=== PATIENT | female | born 1980 | race Caucasian/White ===

== ENCOUNTER 2018-09-28 08:24 | Emergency (ER) | payer SELFPAY ==
--- NOTE | 2018-09-28 08:41 | ED.PDOC ---
History of Present Illness - General Chief Complaint: Drug or Alcohol Abuse Stated Complaint: took 20 hydrocodone/Xanax with SI Time Seen by Provider: 09/28/18 08:36 Source: patient Exam Limitations: no limitations - History of Present Illness Initial Comments: Patient comes in with intentional overdose. She states she took a mixture of 20 Hydrocodone and Xanax 2 hours ago with the intention of suicide. She takes the Xanax for anxiety and the hydrocodone was not hers. She denies any other diagnosis or past medical history other than anxiety. She is groggy but able to awaken easily and talk to us. She smokes cigarettes but does not drink or take other illicit drugs other than today. Timing/Duration: 1-3 hours Severity: severe Improving Factors: nothing Worsening Factors: nothing Associated Symptoms: denies symptoms Allergies/Adverse Reactions: Allergies NO KNOWN ALLERGY Allergy (Verified 09/01/15 19:45) Home Medications: Ambulatory Orders Alprazolam [Xanax] 1 mg PO TID PRN 09/28/18 Amphetamine-Dextroamphetamine [Adderall Xr 30 mg] 1 cap PO DAILY 09/28/18 Review of Systems - Review of Systems Constitutional: States: no symptoms reported, chills. Denies: fever EENTM: States: no symptoms reported Respiratory: States: no symptoms reported. Denies: cough, short of breath Cardiology: States: no symptoms reported Gastrointestinal/Abdominal: States: no symptoms reported Genitourinary: States: no symptoms reported Musculoskeletal: States: no symptoms reported Past Medical History (General) - Patient Medical History Hx Seizures: No Hx Stroke: No Hx Dementia: No Hx Asthma: No Hx of COPD: No Hx Cardiac Disorders: No Hx Congestive Heart Failure: No Hx Pacemaker: No Hx Hypertension: No Hx Thyroid Disease: No Hx Diabetes: No Hx Gastroesophageal Reflux: No Hx Renal Disease: No Hx Cancer: No Hx of HIV: No Hx Hepatitis C: No Hx MRSA: No - Vaccination History Hx Tetanus, Diphtheria Vaccination: Yes Hx Influenza Vaccination: No Hx Pneumococcal Vaccination: No - Social History Hx Tobacco Use: Yes Hx Chewing Tobacco Use: No Hx Alcohol Use: Yes - occasional Hx Depression: No Hx Physical Abuse: No Hx Emotional Abuse: No Hx Suspected Abuse: No - Female History Patient : No Family Medical History - Family History Mother Family History: No Known Living Status: Still Living Physical Exam - Physical Exam General Appearance: No apparent distress, Lethargic Eye Exam: bilateral normal - constricted but reactive Ears, Nose, Throat: hearing grossly normal, normal ENT inspection, normal pharynx Neck: non-tender, full range of motion, supple, normal inspection Respiratory: chest non-tender, lungs clear, normal breath sounds, no respiratory distress Cardiovascular/Chest: normal peripheral pulses, regular rate, rhythm, no edema, no gallop, no JVD, no murmur Peripheral Pulses: radial,right: 2+, radial,left: 2+ Gastrointestinal/Abdominal: normal bowel sounds, non tender, soft Rectal Exam: normal exam Back Exam: normal inspection, no CVA tenderness, no vertebral tenderness Extremity: non-tender 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 MR to be called for evaluation for suicide attempt 09/28/18 14:34 evaluated by [facility] and outpatient follow up planned. They state she is not suicidal now and has someone to go home with until intake tomorrow can be done. - Results/Orders Results/Orders: 09/28/18 08:45 EKG STAT Laboratory Results Sodium 138 mmol/L (135-145) 09/28/18 08:55 Potassium 4.3 mmol/L (3.6-5.0) 09/28/18 08:55 Chloride 106 mmol/L (101-111) 09/28/18 08:55 Carbon Dioxide 23 mmol/L (21-31) 09/28/18 08:55 Anion Gap 13.3 (12-18) 09/28/18 08:55 BUN 9 mg/dL (7-18) 09/28/18 08:55 Creatinine 0.72 mg/dL (0.6-1.3) 09/28/18 08:55 BUN/Creatinine Ratio 12.5 (10-20) 09/28/18 08:55 POC Glucose 110 mg/dL (70-105) H 09/28/18 08:55 Random Glucose 120 mg/dL (70-105) H 09/28/18 08:55 Serum Osmolality 275.6 mOsm/L (275-295) 09/28/18 08:55 Calcium 8.9 mg/dL (8.4-10.2) 09/28/18 08:55 Total Bilirubin 0.9 mg/dL (0.2-1.0) 09/28/18 11:23 Direct Bilirubin 0.1 mg/dL (0-0.2) 09/28/18 11:23 Indirect Bilirubin 0.8 mg/dL (0.2-0.8) 09/28/18 11:23 AST 13 IU/L (10-42) 09/28/18 11:23 ALT 14 IU/L (10-60) 09/28/18 11:23 Alkaline Phosphatase 55 IU/L (42-121) 09/28/18 11:23 Serum Total Protein 6.6 gm/dL (6.4-8.2) 09/28/18 11:23 Albumin 3.7 g/dl (3.2-5.5) 09/28/18 11:23 Globulin 3.0 gm/dL (2.3-3.5) 09/28/18 08:55 Albumin/Globulin Ratio 1.3 (1.1-1.9) 09/28/18 08:55 Urine HCG, Qual Negative (NEGATIVE) 09/28/18 10:42 Salicylates < 4.0 mg/dL (0-29.9) 09/28/18 08:55 Urine Opiates Screen Positive ng/mL (2000) H 09/28/18 10:42 Acetaminophen < 10.0 ug/mL (10.0-30.0) L 09/28/18 11:23 Urine Barbiturates Negative ng/mL (200) 09/28/18 10:42 Ur Phencyclidine Scrn Negative ng/mL (25) 09/28/18 10:42 U Amphetamin/Meth Scrn Positive ng/mL (1000) H 09/28/18 10:42 U Benzodiazepines Scrn Positive ng/mL (200) H 09/28/18 10:42 U Cocaine Metab Screen Negative ng/mL (300) 09/28/18 10:42 U Cannabinoids Screen Negative ng/mL (50) 09/28/18 10:42 Ethyl Alcohol < 0.00 mg/dL (0-79) L 09/28/18 08:55 - EKG/XRAY/CT EKG: Sinus, no ST T wave changes Comments: HR 76, normal axis and QTC 454 Departure - Departure Clinical Impression: Overdose Qualifiers: Encounter type: initial encounter Injury intent: intentional self-harm Qualified Code(s): T50.902A - Poisoning by unspecified drugs, medicaments and biological substances, intentional self-harm, initial encounter Disposition: Discharge to Home or Self Care Condition: Fair Departure Forms: ED Discharge - Pt. Copy, Patient Portal Self Enrollment Instructions: DI for Drug Overdose in Adults Referrals: Carlos Jules MD [Active Staff] - 1-2 Weeks Home Medications: Ambulatory Orders Alprazolam [Xanax] 1 mg PO TID PRN 09/28/18 Amphetamine-Dextroamphetamine [Adderall Xr 30 mg] 1 cap PO DAILY 09/28/18 Additional Instructions: Return to ER for suicidal ideations. Do not take any Xanax or tylenlol, or hyd rocodone. Follow up with [facility] as planned in am
[2018-09-28 08:42] VITALS: TEMP 95.6
[2018-09-28] MEDS: SODIUM CHLORIDE 0.9% 1000ML 1,000 ML IVS ONE (08:45)
[2018-09-28] MEDS: NALOXONE HCL INJ 1 MG/ML SYG IV ONE (08:45)
[2018-09-28 14:47] VITALS: BP 122/81; O2SAT 94
== END 2018-09-28 14:47 | disposition home or self-care (01) ==
LOC: ER 08:24
DX: T40.2X2A Poisoning by other opioids, intentional self-harm, initial encounter (principal); T42.4X2A Poisoning by benzodiazepines, intentional self-harm, initial encounter; F19.10 Other psychoactive substance abuse, uncomplicated; F13.10 Sedative, hypnotic or anxiolytic abuse, uncomplicated; F41.9 Anxiety disorder, unspecified; F17.210 Nicotine dependence, cigarettes, uncomplicated; Z79.899 Other long term (current) drug therapy
CPT/HCPCS: 36415; 36416; 80053; 80076; 80307; 80320; 80329; 81025; 82948; 93005; J2310; J7030

== ENCOUNTER → 2019-02-06 | Outpatient (CLI) | payer BC ==
--- NOTE | 2019-02-07 17:27 | MAM ---
EXAM DESCRIPTION: 3D Screening BILATERAL : Digital Mammography. CLINICAL HISTORY: 38 years Female ANNUAL SCREENING . No complaints. No personal or family history of breast cancer. Mother with ovarian cancer. Childbirth. Premenopausal. No HRT. Lifetime risk of developing breast cancer (Tyrer-Cuzick model)(%): 7.3. COMPARISON: Baseline study at this facility.. TECHNIQUE: Bilateral CC and MLO projection full-field images, digital tomosynthesis mammographic technique. Bilateral digital 2-D full-field MLO images. CAD not available for tomosynthesis or 2-D images. FINDINGS: The breast parenchymal density pattern is: Scattered areas of fibroglandular density. No skin thickening or nipple retraction. Focal asymmetry in the upper outer quadrant of the middle third of the right breast approximately 8 cm from the nipple. No abnormal microcalcifications. No new focal, stellate mass or density, focal asymmetry , and no suspicious microcalcifications left breast. IMPRESSION: BI-RADS CATEGORY: 0 - INCOMPLETE- Need additional imaging evaluation. FOLLOW-UP: Recall for additional imaging: Targeted ultrasound of the region of interest in the middle third of the upper-outer quadrant of the right breast. Optional diagnostic digital mammography if indicated by the ultrasound images.. Written communication concerning the IMPRESSION and Follow-up, will be mailed to the patient and referring health care provider. Electronically signed by: Yosef Pathak MD 02/07/2019 5:25 PM CDT
== END ==
LOC: YCFC.O 10:17
PROVIDERS: ATTEND Family Medicine
DX: Z12.31 Encounter for screening mammogram for malignant neoplasm of breast (principal); Z00.00 Encounter for general adult medical examination without abnormal findings; Z86.2 Personal history of diseases of the blood and blood-forming organs and certain disorders involving the immune mechanism; N39.0 Urinary tract infection, site not specified